=== PATIENT | male | born 1955 | race American Indian/Alaskan Native ===

== ENCOUNTER 2019-05-25 12:49 | Emergency (ER) | payer OTHER ==
--- NOTE | 2019-05-25 13:01 | Event Note ---
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 Further treatment and workup at subsequent clinical providers discretion. Patient/guardian urged not to elope from the ED as their condition may be serious if not clinically assessed and managed. Initial orders include: CT head, XR T-spine, XR left shoulder, labs, EKG
[2019-05-25 14:07] LABS: Basophils % (Auto) 0.3 % (0.0-1.8); Eosinophils % (Auto) 0.6 % (0.0-4.3); Hematocrit 41.6 % (35.5-45.6); Hemoglobin 13.9 gm/dl (11.8-15.2); Lymphocytes # (Auto) 1.1 K/mm3 (1.2-5.4); Mean Corpuscular HGB Conc 33 % (32-34); Mean Corpuscular Volume 100 fl (84-94); Monocytes # (Auto) 0.5 K/mm3 (0.0-0.8); Monocytes % (Auto) 6.8 % (0.0-7.3); Platelet Count 155 K/mm3 (140-440); Red Blood Count 4.17 M/mm3 (3.65-5.03); Red Cell Distribution Width 13.6 % (13.2-15.2)
--- NOTE | 2019-05-25 14:17 | Cat Scan Report ---
CT HEAD WITHOUT CONTRAST INDICATION / CLINICAL INFORMATION: Syncopal episode at work today, head injury with laceration on back of head. TECHNIQUE: Axial imaging performed from the skull apex through the skull base without the use of cont rast. All CT scans at this location are performed using CT dose reduction for ALARA by means of auto mated exposure control. COMPARISON: None available. FINDINGS: HEMORRHAGE: None. EXTRA-AXIAL SPACES: Normal in size and morphology for the patient's age. VENTRICULAR SYSTEM: Normal in size and morphology for the patient's age. CEREBRAL PARENCHYMA: 8 mm chronic focal infarct is identified in the left frontal white matter on ayana ge 30. A second 8 mm chronic focal infarct is identified in the posterior left frontal white matter o n image 36. A 6 mm chronic focal infarct is identified in the posterior right frontal white matter on image 36. The remaining brain parenchyma demonstrates normal attenuation. MIDLINE SHIFT OR HERNIATION: None. CEREBELLUM / BRAINSTEM: No significant abnormality. ORBITS: Normal as visualized. SOFT TISSUES of HEAD: No significant abnormality. CALVARIUM: No significant abnormality. PARANASAL SINUSES / MASTOID AIR CELLS: Normal as visualized. ADDITIONAL FINDINGS: None. IMPRESSION: 1. Chronic focal infarcts as described above in both frontal lobes. No acute intracranial process is identified. Signer Name: Skinny Avitia Jr, MD Signed: 05/25/2019 2:13 PM Workstation Name: [id number]
[2019-05-25 14:27] LABS: Calcium 10.1 mg/dL (8.4-10.2)
--- NOTE | 2019-05-25 14:45 | XRay Report ---
LEFT SHOULDER, 3 VIEWS INDICATION: Fall, acute left shoulder pain. COMPARISON: None. IMPRESSION: No acute osseous or soft tissue abnormality. Moderate osteoarthritic disease is ident ified at the acromioclavicular joint and glenohumeral joint. THORACIC SPINE, 2 VIEWS INDICATION: Fall, acute middle back pain. COMPARISON: None. IMPRESSION: Normal alignment. Mild to moderate degenerative disc disease is identified throughout t he thoracic spine. Bridging anterior osteophytes are noted at T8-9 and T9-10. No acute osseous or so ft tissue abnormality. Signer Name: Skinny Avitia Jr, MD Signed: 05/25/2019 2:41 PM Workstation Name: [id number]
[2019-05-25] MEDS ORDERED: NACL 0.9% 1000 ML 1,000 ML IV ONE (14:59)
[2019-05-25] MEDS ORDERED: XYLOCAINE 1%/ EPI 1:100,000 INFILTRATI NR (15:00)
--- NOTE | 2019-05-25 16:49 | Emergency Department Report ---
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 Patient states very overheated and was very diaphoretic and then had a syncopal episode. Patient states that he did hit his hand on the ground when he lost consciousness. Patient has a laceration of the posterior scalp. This occurred several hours ago. Patient's sats states he has some headache and shoulder pain that is achy in nature and worse with movement better with rest. Associated Symptoms: diaphoresis, headaches. denies: confusion, chest pain, loss of appetite, malaise, nausea/vomiting, rash, seizure, shortness of breath, syncope, weakness - Related Data Previous Rx's Medication Instructions Recorded Last Taken Type methOCARBAMOL [Robaxin TAB] 500 mg PO Q6H PRN #14 tablet 05/25/19 Unknown Rx traMADol [Ultram] 50 mg PO Q6HR PRN #12 tablet 05/25/19 Unknown Rx Allergies Allergy/AdvReac Type Severity Reaction Status Date / Time No Known Allergies Allergy Unverified 05/25/19 12:53 ED Review of Systems ROS: Stated complaint: PASSED OUT HIT HEAD Other details as noted in HPI Comment: All other systems reviewed and negative ED Past Medical Hx - Past Medical History Previous Medical History?: Yes Hx Hypertension: Yes - Surgical History Past Surgical History?: No - Social History Smoking Status: Current Every Day Smoker Substance Use Type: None - Medications Home Medications: Home Medications Medication Instructions Recorded Confirmed Last Taken Type methOCARBAMOL [Robaxin TAB] 500 mg PO Q6H PRN #14 tablet 05/25/19 Unknown Rx traMADol [Ultram] 50 mg PO Q6HR PRN #12 tablet 05/25/19 Unknown Rx ED Physical Exam - General Limitations: No Limitations General appearance: alert, in no apparent distress - Head Head exam: Present: normocephalic. Absent: atraumatic - Expanded Head Exam Expanded 1 - 3cm laceration - Eye Eye exam: Present: normal appearance - ENT ENT exam: Present: mucous membranes moist - Neck Neck exam: Present: normal inspection - Respiratory Respiratory exam: Present: normal lung sounds bilaterally. Absent: respiratory distress, wheezes, rales, rhonchi - Cardiovascular Cardiovascular Exam: Present: regular rate, normal rhythm. Absent: systolic murmur, diastolic murmur, rubs, gallop - GI/Abdominal GI/Abdominal exam: Present: soft, normal bowel sounds. Absent: distended, tenderness, guarding, rebound - Rectal Rectal exam: Present: deferred - Extremities Exam Extremities exam: Present: normal inspection - Back Exam Back exam: Present: normal inspection - Neurological Exam Neurological exam: Present: alert, oriented X3 - Psychiatric Psychiatric exam: Present: normal affect, normal mood - Skin Skin exam: Present: warm, dry, intact, normal color. Absent: rash ED Course Vital Signs 05/25/19 12:58 Temperature 98.7 F Pulse Rate 79 Respiratory 18 Rate Blood Pressure 120/73 O2 Sat by Pulse 100 Oximetry - Laceration /Wound Repair Occipital Wound Location: head Wound Length (cm): 3 Wound's Depth, Shape: linear Irrigated w/ Saline (ccs): 100 Betadine Prep?: Yes Anesthesia: 1% Lidocaine Volume Anesthetic (ccs): 6 Number of Sutures: 7 (lexi) Sterile Dressing Applied?: Yes ED Medical Decision Making - Lab Data Result diagrams: 05/25/19 13:33 05/25/19 13:33 - Radiology Data Ordering Physician: JOAQUÍN HERNANDEZ Date of Service: 05/25/19 Procedure(s): CT head/brain wo con Accession Number(s): [id number] cc: JOAQUÍN HERNANDEZ CT HEAD WITHOUT CONTRAST INDICATION / CLINICAL INFORMATION: Syncopal episode at work today, head injury with laceration on back of head. TECHNIQUE: Axial imaging performed from the skull apex through the skull base without the use of contrast. All CT scans at this location are performed using CT dose reduction for ALARA by means of automated exposure control. COMPARISON: None available. FINDINGS: HEMORRHAGE: None. EXTRA-AXIAL SPACES: Normal in size and morphology for the patient's age. VENTRICULAR SYSTEM: Normal in size and morphology for the patient's age. CEREBRAL PARENCHYMA: 8 mm chronic focal infarct is identified in the left frontal white matter on image 30. A second 8 mm chronic focal infarct is identified in the posterior left frontal white matter on image 36. A 6 mm chronic focal infarct is identified in the posterior right frontal white matter on image 36. The remaining brain parenchyma demonstrates normal attenuation. MIDLINE SHIFT OR HERNIATION: None. CEREBELLUM / BRAINSTEM: No significant abnormality. ORBITS: Normal as visualized. SOFT TISSUES of HEAD: No significant abnormality. CALVARIUM: No significant abnormality. PARANASAL SINUSES / MASTOID AIR CELLS: Normal as visualized. ADDITIONAL FINDINGS: None. IMPRESSION: 1. Chronic focal infarcts as described above in both frontal lobes. No acute intracranial process is identified. Signer Name: Skinny Avitia Jr, MD Signed: 05/25/2019 2:13 PM Workstation Name: [id number] Transcribed By: TTR Dictated By: SKINNY AVITIA JR, MD Electronically Authenticated By: SKINNY AVITIA JR, MD Signed Date/Time: 05/25/[address] [address] XRay Report Signed Patient: KLEBER PALMER MR#: [id number] : 1955 Acct:[id number] Age/Sex: 64 / M ADM Date: 05/25/19 Loc: ED Attending Dr: Ordering Physician: JOAQUÍN HERNANDEZ Date of Service: 05/25/19 Procedure(s): XR spine thoracic 3V Accession Number(s): [id number] cc: JOAQUÍN HERNANDEZ Fluoro Time In Minutes: LEFT SHOULDER, 3 VIEWS INDICATION: Fall, acute left shoulder pain. COMPARISON: None. IMPRESSION: No acute osseous or soft tissue abnormality. Moderate osteoarthritic disease is identified at the acromioclavicular joint and glenohumeral joint. THORACIC SPINE, 2 VIEWS INDICATION: Fall, acute middle back pain. COMPARISON: None. IMPRESSION: Normal alignment. Mild to moderate degenerative disc disease is identified throughout the thoracic spine. Bridging anterior osteophytes are noted at T8-9 and T9-10. No acute osseous or soft tissue abnormality. Signer Name: Skinny Avitia Jr, MD Signed: 05/25/2019 2:41 PM Workstation Name: [id number] Transcribed By: TTR Dictated By: SKINNY AVITIA JR, MD Electronically Authenticated By: SKINNY AVITIA JR, MD Signed Date/Time: 05/25/191440 DD/ 38 DD/ 08 TD/TT: [facility] [address] [place] [address] XRay Report Signed Patient: KLEBER PALMER MR#: [id number] : 1955 Acct:[id number] Age/Sex: 64 / M ADM Date: 05/25/19 Loc: ED Attending Dr: Ordering Physician: JOAQUÍN HERNANDEZ Date of Service: 05/25/19 Procedure(s): XR shoulder 2+V LT Accession Number(s): [id number] cc: JOAQUÍN HERNANDEZ Fluoro Time In Minutes: LEFT SHOULDER, 3 VIEWS INDICATION: Fall, acute left shoulder pain. COMPARISON: None. IMPRESSION: No acute osseous or soft tissue abnormality. Moderate osteoarthritic disease is identified at the acromioclavicular joint and glenohumeral joint. THORACIC SPINE, 2 VIEWS INDICATION: Fall, acute middle back pain. COMPARISON: None. IMPRESSION: Normal alignment. Mild to moderate degenerative disc disease is identified throughout the thoracic spine. Bridging anterior osteophytes are noted at T8-9 and T9-10. No acute osseous or soft tissue abnormality. Signer Name: Skinny Avitia Jr, MD Signed: 05/25/2019 2:41 PM Workstation Name: [id number] Transcribed By: TTR Dictated By: SKINNY AVITIA JR, MD Electronically Authenticated By: SKINNY AVITIA JR, MD Signed Date/Time: 05/25/191440 DD/ 38 - Medical Decision Making Patient's wound was closed with lexi. Patient was hydrated and is feeling much improved. Patient discharged home. Critical care attestation.: If time is entered above; I have spent that time in minutes in the direct care of this critically ill patient, excluding procedure time. ED Disposition Clinical Impression: Musculoskeletal back pain Syncope Qualifiers: Syncope type: heat syncope Encounter type: initial encounter Qualified Code(s): T67.1XXA - Heat syncope, initial encounter Heat exhaustion Qualifiers: Encounter type: initial encounter Qualified Code(s): T67.5XXA - Heat exhaustion, unspecified, initial encounter Closed head injury Qualifiers: Encounter type: initial encounter Qualified Code(s): S09.90XA - Unspecified injury of head, initial encounter Disposition: - TO HOME OR SELFCARE Is pt being admited?: No Does the pt Need Aspirin: No Condition: Stable Instructions: Syncope (ED), Heat Exhaustion (ED), Suture Care (ED) Additional Instructions: Lexi need to be removed in one week Referrals: KRISTINE ALAN MD [Primary Care Provider] - 3-5 Days Time of Disposition: 16:54
[2019-05-25 17:37] VITALS: BP 124/80
== END 2019-05-25 17:36 | disposition home or self-care (01) ==
LOC: ED 12:49
DX: S09.90XA Unspecified injury of head, initial encounter (principal); T67.5XXA Heat exhaustion, unspecified, initial encounter; T67.1XXA Heat syncope, initial encounter; I10 Essential (primary) hypertension; F17.200 Nicotine dependence, unspecified, uncomplicated; X58.XXXA Exposure to other specified factors, initial encounter; Y93.89 Activity, other specified; Y92.89 Other specified places as the place of occurrence of the external cause; Y99.8 Other external cause status
CPT/HCPCS: 12002; 36415; 70450; 72072; 73030; 80048; 85025; 99284; J7030

== ENCOUNTER 2019-06-02 09:47 | Emergency (ER) | payer SELFPAY ==
[2019-06-02 10:06] VITALS: BP 171/89
--- NOTE | 2019-06-02 11:57 | Emergency Department Report ---
Suture/Staple Removal - [facility] Chief Complaint: Laceration/Recheck/Suture Stated Complaint: SUTURE REMOVAL Time Seen by Provider: 06/02/19 11:30 When Sutures or Rhina Placed: 5-7 Days Ago Wound Location: [facility] ED Review of Systems ROS: Stated complaint: SUTURE REMOVAL Other details as noted in HPI Comment: All other systems reviewed and negative ED Past Medical Hx - Past Medical History Hx Hypertension: Yes - Surgical History Past Surgical History?: No - Social History Smoking Status: Current Every Day Smoker Substance Use Type: None - Medications Home Medications: Home Medications Medication Instructions Recorded Confirmed Last Taken Type methOCARBAMOL [Robaxin TAB] 500 mg PO Q6H PRN #14 tablet 05/25/19 Unknown Rx traMADol [Ultram] 50 mg PO Q6HR PRN #12 tablet 05/25/19 Unknown Rx Suture Removal Exam - Exam General: Vital signs noted. No distress. Alert and acting appropriately. Wound: No Pathologic Erythema, No Tenderness, No Drainage, No Pus, No Wound Dehiscence Other Systems: All other systems reviewed and are unremarkable. ED Course Vital Signs 06/02/19 10:04 Temperature 97.9 F Pulse Rate 76 Respiratory 16 Rate Blood Pressure 171/89 O2 Sat by Pulse 100 Oximetry ED Recheck MDM - Medical Decision Making 64-year-old male presents with a staple removal from scalp. 6 rhina removed with no complications. Discussed with patient to follow up with primary care physician. Assessment normal patient is in no acute distress. Critical care attestation.: If time is entered above; I have spent that time in minutes in the direct care of this critically ill patient, excluding procedure time. ED Disposition Clinical Impression: Removal of rhina Disposition: DC-01 TO HOME OR SELFCARE Is pt being admited?: No Does the pt Need Aspirin: No Condition: Stable Instructions: Acute Wound Care (ED) Additional Instructions: Make sure to follow up with the primary care physician as discussed. Take all your medications as you've been prescribed. If you have any worsening symptoms or develop new symptoms please return to ED immediately. Referrals: KRISTINE ALAN MD [Primary Care Provider] - 3-5 Days Forms: Work/School Release Form(ED) Time of Disposition: 11:56
== END 2019-06-02 12:05 | disposition home or self-care (01) ==
LOC: ED 09:47
DX: T14.8XXD Other injury of unspecified body region, subsequent encounter (principal); Z48.02 Encounter for removal of sutures